=== PATIENT | male | born 1945 | race Two or more races ===

== ENCOUNTER 2022-05-12 06:13 | Inpatient (IN) | payer OTHER ==
[~2022-05-12] VITALS: Ht 162.6 cm; Wt 75.0 kg
[2022-05-12] VITALS (12 sets, daily range): BP systolic 96–173; BP diastolic 48–87
[~2022-05-12 06:13] MED LIST: AML5T PO; ASPI1TAB20 PO; ATOR40TA52 PO; CARV6.2551 PO; FLUO20TA34 PO; TAMS0.4C36 PO; TRAZ100T3 PO
[2022-05-12] MEDS ORDERED: MIDAZOLAM HCL 2MG/2ML 2ml VIAL (1mg/ml) ONE (07:12)
[2022-05-12] MEDS ORDERED: MORPHINE SULF PF 5 MG/10 ML VIAL ONE (07:12)
[2022-05-12] MEDS ORDERED: fentaNYL CITRATE 100 MCG/2 ML VL ONE (07:12)
[2022-05-12] MEDS ORDERED: ceFAZolin 1GM/50ML 100 ML IV ONE (07:17)
[2022-05-12] MEDS ORDERED: EPINEPHrine HCL 1 MG/1 ML AMP ONE (07:19)
[2022-05-12] MEDS ORDERED: TRANEXAMIC ACID 20 ML ONE (07:19)
[2022-05-12] MEDS ORDERED: VANCOMYCIN HCL 1000 MG VL ONE ×2 (07:20→09:13)
[2022-05-12] MEDS ORDERED: TETRACAINE 1% INJ 2 ML VIAL IJ ONE (07:20)
[2022-05-12] MEDS ORDERED: NALOXONE HCL 0.4 MG/ML VIAL IV PRN (09:00)
[2022-05-12] MEDS ORDERED: NALBUPHINE HCL 10 MG/1ml INJECTION SUBCUT ONE (09:00)
[2022-05-12] MEDS ORDERED: diphenhdrAMINE HCL 50 MG/1 ML VL IV PRN (09:00)
[2022-05-12] MEDS ORDERED: DexAMETHasone SOD PHOS 10MG/1ML VIAL INJ IV PRN (09:00)
[2022-05-12] MEDS ORDERED: PROPOFOL 10 MG/ML 20 ML IV ONE (09:44)
[2022-05-12] MEDS ORDERED: ONDANSETRON HCL 4 MG/2 ML VIAL ONE (09:44)
[2022-05-12] MEDS: D5W/LACTATED RINGERS 1,000 ML IV SCH (10:00)
[2022-05-12] MEDS: PREGABALIN 25 MG CAP PO SCH ×2 (10:00→21:57)
[2022-05-12] MEDS ORDERED: oxyCODONE HCL 5MG TAB PO PRN (10:00)
[2022-05-12] MEDS ORDERED: HYDROmorphone HCL 2 MG/ML VL/or syr IV PRN (10:00)
[2022-05-12] MEDS: ACETAMINOPHEN 325 MG TAB PO SCH ×2 (12:00→18:16)
[2022-05-12] MEDS ORDERED: KETOROLAC TROMETH 30 MG/ML 1ML VIAL IV SCH (12:00)
[2022-05-12] MEDS: ONDANSETRON HCL 4 MG/2 ML VIAL IV PRN ×2 (13:23→18:25)
[2022-05-12] MEDS ORDERED: HYDROmorphone HCL 2 MG/ML VL/or syr ONE (13:39)
[2022-05-12] MEDS: HYDROmorphone HCL 2 MG/ML VL/or syr IV PRN ×2 (13:40→14:02)
[2022-05-12] MEDS: ceFAZolin 2 GM in D5W 5% 100 ML IV SCH ×2 (15:17→22:25)
[2022-05-12] MEDS: oxyCODONE HCL 5MG TAB PO PRN ×2 (16:12→21:06)
[2022-05-12] MEDS ORDERED: traZODone HCL 50 MG TAB PO SCH (22:00)
[2022-05-12] MEDS: CARVEDILOL 3.125 MG TAB PO SCH (22:08)
[2022-05-13] VITALS (13 sets, daily range): BP systolic 121–172; BP diastolic 69–86
[2022-05-13] MEDS: D5W/LACTATED RINGERS 1,000 ML IV SCH ×3 (02:42→16:00)
[2022-05-13 04:37] LABS: Basophils # (auto) 0 10 ^3/uL (0-0.2); Eosinophils # (auto) 0 10 ^3/uL (0-0.8); Hematocrit 32.8 % (41.0-53.0); Hemoglobin 11.2 g/dL (13.5-17.5); Lymphocytes # (auto) 0.6 10 ^3/uL (0.4-5.4); Lymphocytes % (auto) 6.9 % (10.0-50.0); Mean Corpuscular Hemoglobin 31.3 pg (28.0-32.0); Mean Corpuscular Hgb Conc. 34.1 g/dL (32.0-36.0); Mean Corpuscular Volume 91.7 fL (80.0-100.0); Monocytes # (auto) 0.7 10 ^3/uL (0-1.3); Monocytes % (auto) 7.9 % (0.0-12.0); Neutrophils # (auto) 7.4 10 ^3/uL (1.6-8.6); Neutrophils % (auto) 85.2 % (37.0-80.0); Red Blood Cells 3.58 10^6/uL (4.5-5.90); Red Cell Distribution Width 13.9 % (11.8-14.3); White Blood Cell 8.6 10^3/uL (4.4-10.8)
[2022-05-13 04:55] LABS: Calcium 8.1 mg/dL (8.5-10.1); Potassium 4.1 mmol/L (3.5-5.1)
[2022-05-13 04:57] LABS: BUN/Creatinine Ratio 13.8
[2022-05-13] MEDS: ACETAMINOPHEN 325 MG TAB PO SCH ×4 (06:12→17:52)
[2022-05-13] MEDS: oxyCODONE HCL 5MG TAB PO PRN (09:17)
[2022-05-13] MEDS: ASPirin 81 mg TAB PO SCH ×2 (09:17→22:28)
[2022-05-13] MEDS: FLUoxetine HCL 20 MG CAP PO SCH (09:18)
[2022-05-13] MEDS: amLODIPine BESYLATE 5 MG TAB PO SCH (09:18)
[2022-05-13] MEDS: CARVEDILOL 3.125 MG TAB PO SCH ×2 (09:18→22:28)
[2022-05-13] MEDS: PREGABALIN 25 MG CAP PO SCH ×2 (09:19→22:29)
[2022-05-13] MEDS ORDERED: IOHEXOL 350 MG/ML 100ML IJ ONE (14:44)
[2022-05-13] MEDS: TAMSULOSIN HYDROCHLORIDE 0.4 MG CAP PO SCH (17:51)
[2022-05-13] MEDS ORDERED: ENOXAPARIN SOD 40 MG/0.4 ML SYRINGE SC ONE (18:00)
[2022-05-13] MEDS ORDERED: traZODone HCL 50 MG TAB PO PRN (18:00)
[2022-05-13] MEDS: ATORVASTATIN 20 MG TAB PO SCH (22:28)
[2022-05-14] MEDS: D5W/LACTATED RINGERS 1,000 ML IV SCH ×3 (01:19→21:44)
[2022-05-14 05:00] VITALS: BP 101/97
[2022-05-14] MEDS: ACETAMINOPHEN 325 MG TAB PO SCH ×5 (06:34→23:18)
[2022-05-14 08:38] VITALS: BP 97/54
[2022-05-14] MEDS: CARVEDILOL 3.125 MG TAB PO SCH ×2 (09:46→21:30)
[2022-05-14] MEDS: ASPirin 81 mg TAB PO SCH ×2 (09:47→21:30)
[2022-05-14] MEDS: FLUoxetine HCL 20 MG CAP PO SCH (09:47)
[2022-05-14] MEDS: PREGABALIN 25 MG CAP PO SCH ×2 (09:49→21:29)
[2022-05-14] MEDS: ENOXAPARIN SOD 40 MG/0.4 ML SYRINGE SC SCH (09:50)
[2022-05-14] MEDS: amLODIPine BESYLATE 5 MG TAB PO SCH (09:51)
[2022-05-14 13:25] VITALS: BP 127/48
[2022-05-14 17:00] VITALS: BP 148/71
[2022-05-14] MEDS: TAMSULOSIN HYDROCHLORIDE 0.4 MG CAP PO SCH (19:41)
[2022-05-14] MEDS: ATORVASTATIN 20 MG TAB PO SCH (21:30)
[2022-05-14 22:00] VITALS: BP 133/70
[2022-05-15 05:00] VITALS: BP 138/61
[2022-05-15] MEDS: ACETAMINOPHEN 325 MG TAB PO SCH ×2 (05:42→12:00)
[2022-05-15 09:00] VITALS: BP 119/57
[2022-05-15] MEDS: FLUoxetine HCL 20 MG CAP PO SCH (12:56)
[2022-05-15] MEDS: ASPirin 81 mg TAB PO SCH (12:57)
[2022-05-15] MEDS: PREGABALIN 25 MG CAP PO SCH (12:57)
[2022-05-15] MEDS: amLODIPine BESYLATE 5 MG TAB PO SCH (12:58)
[2022-05-15] MEDS: ENOXAPARIN SOD 40 MG/0.4 ML SYRINGE SC SCH (12:58)
[2022-05-15] MEDS: CARVEDILOL 3.125 MG TAB PO SCH (12:58)
[2022-05-15 13:00] VITALS: BP 116/60
[2022-05-15 13:51] VITALS: BP 162/88
== END 2022-05-15 15:08 | disposition home health service (06) | DRG 469 ==
LOC: SUR 06:13 → EDBD 07:00 → TELE 09:52 → TELE-WESTW 14:46
PROVIDERS: ADMIT Orthopaedic Surgery; ATTEND Orthopaedic Surgery
PROC: 0SRD069 Replacement of Left Knee Joint with Oxidized Zirconium on Polyethylene Synthetic Substitute, Cemented, Open Approach (ICD-10-PCS; principal; 2022-05-12 07:37)
DX: M17.12 Unilateral primary osteoarthritis, left knee (principal); J96.01 Acute respiratory failure with hypoxia; E87.1 Hypo-osmolality and hyponatremia; I10 Essential (primary) hypertension; E78.5 Hyperlipidemia, unspecified; I65.21 Occlusion and stenosis of right carotid artery; Z20.822 Contact with and (suspected) exposure to COVID-19; I25.10 Atherosclerotic heart disease of native coronary artery without angina pectoris; Z85.46 Personal history of malignant neoplasm of prostate; Z92.3 Personal history of irradiation; Z95.1 Presence of aortocoronary bypass graft
CPT/HCPCS: 36415; 70450; 71275; 73560; 80048; 82962; 85025; 86850; 86900; 86901; 93306; 93886; 93970; 97110; 97116; 97163; 97530; G0378; J0171; J0690; J2250; J2405; J2704; J7060